=== PATIENT | female | born 1935 | race Caucasian/White ===

== ENCOUNTER 2020-09-25 01:02 | Outpatient (CLI) | payer MEDICARE, SELFPAY ==
[2020-09-25 20:51] LABS: SARS-CoV-2 RNA PCR Negative
== END 2020-09-25 01:03 | disposition home or self-care (01) ==
LOC: ANHCOVIDDT 01:07
PROVIDERS: PCP Family Medicine; Visit Provider Internal Medicine Gastroenterology
DX: Z01.812 Encounter for preprocedural laboratory examination (principal); Z20.828 Contact with and (suspected) exposure to other viral communicable diseases
CPT/HCPCS: 87635; C9803; U0003

== ENCOUNTER 2020-09-27 00:59 | Day surgery (SDC) | payer MEDICARE, SELFPAY ==
[2020-09-20 13:56] VITALS: BMI 25.4
[2020-09-27 08:17] VITALS: BP 132/92; PULSE 76; RESP 20; TEMP 36.8; O2SAT 100
--- NOTE | 2020-09-27 08:28 | WPDANESEPPF ---
Anes - Initial Pre Proc Eval Procedure: Operation Date: 09/27/20 09:00 Proposed Procedures p Screening Colonoscopy - Adithya Moore MD Date/Time: 09/27/20 08:28 Surgeon: Adithya Moore MD Pre Op Diagnosis: hx of colon polyps Patient Data Age: 84 Gender: F Height: 1.55 m Weight: 62.8 kg Last Vital Signs Temp 36.8 C 09/27/20 08:17 Pulse 76 09/27/20 08:17 Resp 20 09/27/20 08:17 BP 132/92 H 09/27/20 08:17 Pulse Ox 100 09/27/20 08:17 Allergies Allergy/AdvReac Type Severity Reaction Status Date / Time No Known Allergies Allergy Verified 09/27/20 08:16 Home Medications Medication Instructions Recorded Confirmed Type No Home Medications 09/20/20 09/20/20 History Patient hx anesthesia problems: none Family hx anesthesia problems: none PMFSH Past Medical History Medical History (Updated 09/27/20 @ 08:29 by Marquez Rivero MD) Arthritis Overweight (BMI 25.0-29.9) Social History Social History Smoking status: Never smoker Alcohol intake: never Living arrangements: with family Gender identity (if verbalized by the patient): Female Spiritual care concerns: No Anes - Eval Final PreProcedure Day of Procedure 09/27/20 08:28 Patient weight: overweight Heart: regular rate and rhythm Lungs: clear to auscultation and normal air movement Airway: Mallampati scale Neurological: alert and oriented Last oral intake: >/= 8 hours ASA classification: II Emergent: no Anesthetic plan: proceed Anesthesia type and monitoring: general GIVS Informed Consent: The patient's anesthetic plan and its attendant risks and benefits were discussed with the patient/family/POA. Questions were solicited and answers provided to the satisfaction of the patient/family/POA.
[2020-09-27] MEDS: LACTATED RINGERS 1,000 ML 150 ML IV CONT (08:33)
--- NOTE | 2020-09-27 08:40 | WPDGICN ---
Assessment and Plan Assessment and plan (1) History of colon polyps: Code(s): Z86.010 - Personal history of colonic polyps Status: Acute Assessment and Plan: Patient had multiple adenomatous colon polyps removed from the colon 2016. She presents today for follow-up colonoscopy. GI Consult Note Consult date/time: 09/27/20 08:40 HPI: Casandra Bliss is a 84 year old female Seen in evaluation at the request of Dr Jared Lam,. patient presents for follow-up colonoscopy. In 2017 had several tubular adenomatous colon polyps removed. Patient states that her current weight appetite bowel movements are normal. She denies abdominal pain. Her family history is noncontributory. Review of Systems Review of Systems: All systems reviewed & are unremarkable except as noted in HPI and below PMFSH Past Medical History Medical History (Updated 09/27/20 @ 08:41 by Adithya Moore MD) Arthritis Overweight (BMI 25.0-29.9) Social History Social History Smoking status: Never smoker Alcohol intake: never Living arrangements: with family Gender identity (if verbalized by the patient): Female Spiritual care concerns: No Meds Home Medications and Allergies Home Medications Medication Instructions Recorded Confirmed Type No Home Medications 09/20/20 09/20/20 History Allergies Allergy/AdvReac Type Severity Reaction Status Date / Time No Known Allergies Allergy Verified 09/27/20 08:16 Vital Signs Vital Signs - 24 hr 09/27/20 08:17 Temperature 98.3 F Pulse Rate 76 Respiratory Rate 20 Blood Pressure 132/92 H Pulse Oximetry 100 Exam Narrative: Exam Narrative: Physical exam reveals patient be alert. Vital signs stable. HEENT exam unremarkable. Lungs are clear to auscultation and percussion. Heart is without murmur or extra sounds. Abdominal exam bowel sounds are present soft nontender with no organomegaly. Digital external rectal exam is normal.
[2020-09-27 09:19] VITALS: BP 134/74; PULSE 68; RESP 24; O2SAT 97
[2020-09-27 09:29] VITALS: BP 144/67; PULSE 69; RESP 16; O2SAT 100
[2020-09-27 09:39] VITALS: BP 134/61; PULSE 66; RESP 21; O2SAT 99
== END 2020-09-27 09:51 | disposition home or self-care (01) ==
PROVIDERS: PCP Family Medicine; Visit Provider Internal Medicine Gastroenterology
PROC: 0DJD8ZZ Inspection of Lower Intestinal Tract, Via Natural or Artificial Opening Endoscopic (ICD-10-PCS; CPT 45378; principal; 2020-09-27 09:00)
DX: Z12.11 Encounter for screening for malignant neoplasm of colon (principal); D12.0 Benign neoplasm of cecum; K64.8 Other hemorrhoids; K57.30 Diverticulosis of large intestine without perforation or abscess without bleeding
CPT/HCPCS: 45385; 88305; J2704; J7120

== ENCOUNTER 2024-02-25 09:45 | Emergency (ER) | payer MEDICARE, SELFPAY ==
[2024-02-25 09:59] VITALS: BP 178/77; PULSE 73; RESP 18; TEMP 36.3; O2SAT 100
--- NOTE | 2024-02-25 09:59 | ED.EYEPROB ---
HPI - Eye Problem General Chief complaint: Eye Problems Stated complaint: eye irritation Source: patient, RN notes reviewed and old records reviewed Mode of arrival: ambulatory Limitations: no limitations History of Present Illness HPI Narrative: 88-year-old female presents to [facility] complaints left lower eye swelling that started this a.m.. Patient denies pain. Patient denies discharge. Patient denies injury. Related Data Home Medications Medication Instructions Recorded Confirmed losartan 25 mg tablet mg 02/25/24 Allergies Allergy/AdvReac Type Severity Reaction Status Date / Time No Known Allergies Allergy Verified 02/25/24 09:58 Review of Systems Constitutional: Constitutional: Reports no additional constitutional complaints, Denies body ache(s), Denies chills, Denies fatigue, Denies fever(s) and Denies headache(s) Eyes: Eyes: Reports as per HPI, Reports no additional eye complaints, Denies blurry vision, Denies exophthalmos, Denies change in vision, Denies diplopia, Denies eye discharge, Denies irritation, Denies itchy eyes, Reports requires corrective lenses (glasses) and Denies photophobia ENT: Reports system reviewed and no additional complaints, except as documented, Denies vertigo, Denies dizziness, Denies ear discharge, Denies otalgia, Denies facial pain, Denies headache(s), Denies nasal congestion, Denies nasal discharge, Denies sinus pain, Denies sinus pressure and Denies sore throat Cardiovascular: Cardiovascular: Reports no additional cardiovascular complaints, Denies chest pain, Denies chest pain at rest, Denies rapid heart rate and Denies dyspnea Respiratory: Respiratory: Reports no additional respiratory complaints, Denies chest congestion, Denies cough, Denies pain on inspiration, Denies pain with cough and Denies dyspnea Gastrointestinal: Gastrointestinal: Denies abdominal pain, Denies diarrhea, Denies nausea and Denies vomiting Integumentary/Breasts: Skin/Breast: Denies rash Neurologic: Reports system reviewed and no additional complaints, except as documented, Denies vertigo, Denies dizziness and Denies headache(s) Endocrine: Endocrine: Denies fatigue PMF Past Medical History Medical History Arthritis Overweight (BMI 25.0-29.9) Surgical History Surgical History History of knee replacement Family History Family History Father Heart disease Social History Social History Smoking status: Never smoker Alcohol intake: never Substance use: never Living arrangements: alone Occupation/Education: retired Gender identity (if verbalized by the patient): Female Spiritual care concerns: No Comments At the time of my signature, I reviewed and agree with the nursing past medical, surgical, social, and family history. There is no relevant family history pertinent to the patient complaint. Exam Const: General: cooperative, healthy appearing, no acute distress and well nourished Nutritional Appearance: well nourished Orientation/consciousness: patient oriented x3 Limitations: no limitations HENMT: Head: normal to inspection and normocephalic Ears: external ears normal Face/Nose/Sinus: normal facial exam Face and sinus: normal facial exam Mouth: Yes Normal oral and palatal mucosa present, Yes oropharynx normal and Yes moist mucous membranes Eyes: Visual Turner: normal visual turner by confrontation Alignment and Position: alignment normal Periorbital: periorbital findings normal Eyelids: eyelid abnormality left lower eyelid swelling; without inflamed cysts, without ectropion, without erythema, with no foreign bodies, without lacerations and nontender Sclera: sclerae normal Pupils: Equal, round and reactive pupils present Resp: Effort & Inspect
== END 2024-02-25 10:14 | disposition home or self-care (01) ==
PROVIDERS: Emergency Provider Registered Nurse; PCP Family Medicine
DX: H00.015 Hordeolum externum left lower eyelid (principal); M19.90 Unspecified osteoarthritis, unspecified site
CPT/HCPCS: 99213; G0463